=== PATIENT | female | born 1975 | race Caucasian/White ===

== ENCOUNTER 2017-02-10 01:45 | Emergency (ER) | payer OTHER ==
[~2017-02-10] VITALS: Ht 167.6 cm; Wt 89.9 kg
[2017-02-10 01:49] VITALS: Ht 167.6 cm; Wt 89.9 kg
[2017-02-10] MEDS ORDERED: SOD CHLORIDE 0.9% 500 ML IV STA (03:00)
[2017-02-10] MEDS ORDERED: FAMOTIDINE 20 MG INJ IV STA (03:00)
--- NOTE | 2017-02-10 03:04 | ERD ---
ER Documentation Chief Complaint Chief Complaint upper abd pain x 3 days HPI Patient is a 42-year-old female who presents with sudden onset, intermittent, moderate epigastric pain for the last 3 days. She states that the pain usually lasts about 15 minutes and is not associated with eating. The pain radiates to bilateral upper quadrants. She denies fever or vomiting. Today, she has had the pain since 9 PM. She went to sleep, but was awoken by worsening pain at midnight. She has had 3 episodes of yellow watery diarrhea without blood or mucus. She last ate at 8 PM. ROS All systems reviewed and are negative except as per history of present illness. Medications Home Meds Active Scripts Famotidine* (Famotidine*) 20 Mg Tablet, 20 MG PO DAILY, #21 TAB Prov:KIMBERLEE LORD MD 02/10/17 Reported Medications Sitagliptin* (Januvia*) 100 Mg Tablet, 100 MG PO DAILY, #30 TAB 02/10/17 Pravastatin Sodium* (Pravastatin Sodium*) 40 Mg Tablet, 40 MG PO HS, TAB 02/10/17 Metformin* (Glucophage*) 500 Mg Tab, 500 MG PO WITH BREAKFAST DINNE, #30 TAB 02/10/17 Glipizide* (Glipizide*) 5 Mg Tablet, 5 MG PO BID, TAB 02/10/17 Lisinopril* (Lisinopril*) 10 Mg Tablet, 10 MG PO DAILY, #30 TAB 02/10/17 Norgestimate-Ethinyl Estradiol (Lgs-Ag-Fjkkmkte Tablet) 1 Each Tablet, 1 EACH PO , TAB 02/10/17 Ferrous Sulfate* (Ferrous Sulfate*) 325 Mg Tabec, 325 MG PO DAILY, TAB 02/10/17 Jber-3 Fatty Acids/Fish Oil (Fish Oil 1,000 mg Softgel) 1 Each Capsule, 1 EACH PO, CAP 02/10/17 Allergies Allergies: Coded Allergies: No Known Allergy (Unverified , 02/10/17) PMhx/Soc Past medical history: Yrz-bnjensi-aafmpmuas diabetes mellitus Past surgical history: Social history: Denies tobacco or alcohol FmHx Family History: No coronary disease Physical Exam Vitals Vital Signs Date Time Temp Pulse Resp B/P Pulse Ox O2 Delivery O2 Flow Rate FiO2 02/10/17 04:50 97.7 78 20 149/83 100 Room Air 02/10/17 01:49 98.6 90 20 155/75 100 Physical Exam Const: Alert, no acute distress Head: Atraumatic Eyes: Normal Conjunctiva, No pallor, no icterus ENT: Normal External Ears, Nose and Mouth. Mucous membranes moist Neck: Full range of motion. Resp: Clear to auscultation bilaterally, No wheezes, no rales Cardio: Regular rate and rhythm, no murmurs Abd: Soft, non distended. Tenderness in the epigastrium only, no rebound, no guarding Skin: No petechiae or rashes Back: No midline or flank tenderness Ext: No cyanosis, or edema Neur: Awake and alert, Cranial nerves II through XII intact bilaterally, strength and sensation full in 4 extremities. Psych: Normal Mood and Affect Result Diagram: 02/10/17 03202/10/17 032 Results 24 hrs Laboratory Tests Test 02/10/17 03:20 White Blood Count 10.910^3/ul Red Blood Count 4.9610^6/ul Hemoglobin 12.3g/dl Hematocrit 37.8% Mean Corpuscular Volume 76.2fl Mean Corpuscular Hemoglobin 24.8pg Mean Corpuscular Hemoglobin Concent 32.5g/dl Red Cell Distribution Width 15.9% Platelet Count 26178^3/UL Mean Platelet Volume 12.7fl Neutrophils % 61.4% Lymphocytes % 29.3% Monocytes % 6.6% Eosinophils % 1.9% Basophils % 0.5% Nucleated Red Blood Cells % 0.0/100WBC Neutrophils # 6.710^3/ul Lymphocytes # 3.210^3/ul Monocytes # 0.710^3/ul Eosinophils # 0.210^3/ul Basophils # 0.110^3/ul Nucleated Red Blood Cells # 0.010^3/ul Urine Color YELLOW Urine Clarity SLIGHTLY CLOUDY Urine pH 6.0 Urine Specific [place] 1.027 Urine Ketones NEGATIVEmg/dL Urine Nitrite NEGATIVEmg/dL Urine Bilirubin NEGATIVEmg/dL Urine Urobilinogen NEGATIVEmg/dL Urine Leukocyte Esterase TRACELeu/ul Urine Microscopic RBC 0/HPF Urine Microscopic WBC 2/HPF Urine Squamous Epithelial Cells FEW/HPF Urine Calcium Oxalate Crystals FEW/HPF Urine Bacteria FEW/HPF Urine Mucus FEW/HPF Urine Hemoglobin NEGATIVEmg/dL Urine Glucose NEGATIVEmg/dL Urine Total Protein NEGATIVEmg/dl Sodium Level 139mmol/L Potassium Level 4.2mmol/L Chloride Level 104mmol/L Carbon Dioxide Level 22mmol/L Anion Gap 17 Blood Urea Nitrogen 8mg/dl Creatinine 0.70mg/dl Glucose Level 205mg/dl Calcium Level 9.0mg/dl Total Bilirubin 0.0mg/dl Direct Bilirubin 0.00mg/dl Indirect Bilirubin 0.0mg/dl Aspartate Amino Transf (AST/SGOT) 23IU/L Alanine Aminotransferase (ALT/SGPT) 34IU/L Alkaline Phosphatase 115IU/L Total Protein 7.3g/dl Albumin 3.9g/dl Globulin 3.40g/dl Albumin/Globulin Ratio 1.14 Lipase 155U/L Current Medications Medications (Trade) Dose Ordered Sig/Kobe Route PRN Reason Start Time Stop Time Status Last Admin Dose Admin Sodium Chloride (NS) 500 ml @ 500 mls/hr Q1H STAT IV 02/10/17 03:00 02/10/17 03:59 DC 02/10/17 03:31 Famotidine (Pepcid Iv) 20 mg ONCE STAT IV 02/10/17 03:00 02/10/17 03:02 DC 02/10/17 03:32 Procedures/MDM EKG read by me: Time 0308, rate 77 Rhythm: Normal sinus [place]: Normal Intervals: Normal ST-T waves: no ischemic changes Ectopy: No Q-waves: No Impression: No evidence of ischemia or arrhythmia MDM: Patient is a 42-year-old female who presents with 3 days of intermittent epigastric pain radiating to bilateral flanks. Her abdominal exam is relatively benign. She is given a dose of Pepcid in the ER and stated that her pain resolved. She did have an episode of recurrence. Her EKG is nonischemic. Her labs are unremarkable. She has not had any vomiting or fever. A gallbladder ultrasound shows fatty liver but no evidence of cholelithiasis or choledocholithiasis. This may be the cause of her pain, although she may also have a functional etiology. I do not suspect bowel obstruction. There is no finding to raise concern for appendicitis or diverticulitis.She had improvement with Pepcid. Her test was negative. I will discharge with prescription for Pepcid, advised her on eating a bland and low-fat diet, and on need for follow-up with her PMD and return precautions. Departure Diagnosis: Primary Impression: Abdominal pain Abdominal location: epigastric Qualified Code: R10.13 - Epigastric pain Condition: KIMBERLEE Santiago MD Feb 10, 2017 03:04
--- NOTE | 2017-02-10 03:24 | RADRPT ---
PROCEDURE: Abdominal ultrasound, limited. CLINICAL INDICATION: Abdominal pain. TECHNIQUE: Multiple real-time images were acquired of the patient's right upper abdomen utilizing a high resolution transducer. COMPARISON: None FINDINGS: The liver demonstrates increased echogenicity and size measuring 20.5 cm. There is no focal mass or intrahepatic biliary ductal dilatation. The portal vein is patent. The gallbladder is not distend ed. No gallstones are identified. There is no pericholecystic fluid or gallbladder wall thickening . The common bile duct measures 3.6 mm in maximal dimension. The pancreas is obscured by overlying bowel gas. No free fluid is identified. The right kidney is normal size and echogenicity measuring 11.8 cm. There is no focal renal mass or echogenic calculus identified. There is no obstructive uropathy. IMPRESSION: Enlarged liver with fatty infiltration. Pancreas obscured by overlying bowel gas. .Noe Hess MD, MD Date Time Electronically viewed and signed by .Noe Hess MD, MD on 02/10/2017 03:24 .T/
[2017-02-10] MEDS ORDERED: LISI10TA2 PO (04:03)
[2017-02-10] MEDS ORDERED: PRAV40TA76 PO (04:03)
[2017-02-10] MEDS ORDERED: SITA100T8 PO (04:03)
[2017-02-10] MEDS ORDERED: NORG1TAB79 PO (04:03)
[2017-02-10] MEDS ORDERED: METF500T4 PO (04:03)
[2017-02-10] MEDS ORDERED: GLIP5TAB13 PO (04:03)
[2017-02-10] MEDS ORDERED: OMEG1CAP17 PO (04:03)
[2017-02-10] MEDS ORDERED: FER325 PO (04:03)
[2017-02-10 04:06] LABS: BASOPHIL # 0.1 10^3/ul (0.0-0.1); BASOPHILS % 0.5 % (0.0-2.0); EOSINOPHILS # 0.2 10^3/ul (0.0-0.5); EOSINOPHILS % 1.9 % (0.0-7.0); HEMATOCRIT 37.8 % (37.0-47.0); HEMOGLOBIN 12.3 g/dl (12.0-16.0); LYMPHOCYTES # 3.2 10^3/ul (0.8-2.9); LYMPHOCYTES % 29.3 % (15.0-51.0); MEAN CORPUSCULAR HEMOGLOBIN 24.8 pg (29.0-33.0); MEAN CORPUSCULAR HGB CONC 32.5 g/dl (32.0-37.0); MEAN CORPUSCULAR VOLUME 76.2 fl (82.0-101.0); MEAN PLATELET VOLUME 12.7 fl (7.4-10.4); MONOCYTE # 0.7 10^3/ul (0.3-0.9); MONOCYTES % 6.6 % (0.0-11.0); NEUTROPHIL # 6.7 10^3/ul (1.6-7.5); NEUTROPHILS % 61.4 % (39.0-77.0); PLATELET COUNT 208 10^3/UL (140-415); RED BLOOD COUNT 4.96 10^6/ul (4.20-5.40); RED CELL DISTRIBUTION WIDTH 15.9 % (11.5-14.5); WHITE BLOOD COUNT 10.9 10^3/ul (4.8-10.8)
[2017-02-10 04:12] LABS: ADD UMIC YES; UR ASCORBIC ACID NEGATIVE (NEGATIVE); UR BACTERIA FEW /HPF (NONE SEEN); UR BILIRUBIN (Dip) NEGATIVE (NEGATIVE); UR BLOOD (Dip) NEGATIVE (NEGATIVE); UR CLARITY SLIGHTLY CLOUDY (CLEAR); UR COLOR YELLOW (YELLOW); UR GLUCOSE (Dip) NEGATIVE (NEGATIVE); UR KETONES (Dip) NEGATIVE (NEGATIVE); UR LEUKOCYTE ESTERASE (Dip) TRACE Leu/ul (NEGATIVE); UR MUCUS FEW /HPF (NONE SEEN); UR NITRITE (Dip) NEGATIVE (NEGATIVE); UR RBC 0 /HPF (0-5); UR SPECIFIC GRAVITY (Dip) 1.027 (1.003-1.030); UR SQUAMOUS EPITHELIAL CELL FEW /HPF (FEW); UR TOTAL PROTEIN (Dip) NEGATIVE (NEGATIVE); UR UROBILINOGEN (Dip) NEGATIVE (NEGATIVE)
[2017-02-10 04:24] LABS: ALBUMIN 3.9 g/dl (3.3-4.9); ALBUMIN/GLOBULIN RATIO 1.14; CREATININE 0.7 mg/dl (0.44-1.00); POTASSIUM 4.2 mmol/L (3.5-5.1); TOTAL PROTEIN 7.3 g/dl (6.1-8.1)
[2017-02-10] MEDS ORDERED: FAMO20TA18 PO (04:38)
[2017-02-10 04:50] VITALS: BP 149/83; PULSE 78; RESP 20; TEMP 97.7
== END 2017-02-10 05:45 | disposition home or self-care (01) ==
LOC: E/R 01:45
DX: R10.13 Epigastric pain (principal); E11.9 Type 2 diabetes mellitus without complications; Z79.84 Long term (current) use of oral hypoglycemic drugs
CPT/HCPCS: 36415; 76705; 80053; 81001; 83690; 85025; 96374; 99285; J7040